=== PATIENT | male | born 1955 | race Caucasian/White ===

== ENCOUNTER → 2020-10-16 | Outpatient (CLI) | payer MEDICARE, OTHER | LOC: KOH-I 15:18 | DX: J44.1 Chronic obstructive pulmonary disease with (acute) exacerbation (principal); R06.02 Shortness of breath | CPT/HCPCS: 71046 ==

== ENCOUNTER 2021-05-31 15:10 | Emergency (ER) | payer MEDICARE, OTHER ==
[2021-05-31] MEDS ORDERED: CEPHALEXIN500 M1 PO (16:08)
[2021-05-31] MEDS ORDERED: BACTROBAN OINT22 GM EXT (16:08)
== END 2021-05-31 16:13 | disposition home or self-care (01) ==
LOC: ER1 15:10
DX: L08.9 Local infection of the skin and subcutaneous tissue, unspecified (principal); E78.5 Hyperlipidemia, unspecified; F17.200 Nicotine dependence, unspecified, uncomplicated; E11.9 Type 2 diabetes mellitus without complications; Z88.0 Allergy status to penicillin
CPT/HCPCS: 99282

== ENCOUNTER → 2021-06-21 | Outpatient (CLI) | payer MEDICARE, OTHER ==
[~2021-06-21] MED LIST: BACTROBAN OINT22 GM EXT; CEPHALEXIN500 M1 PO
== END ==
LOC: KOH-I 11:08
DX: R06.02 Shortness of breath (principal); Z88.0 Allergy status to penicillin
CPT/HCPCS: 71046

== ENCOUNTER 2021-07-03 20:12 | Emergency (ER) | payer MEDICARE, OTHER ==
[2021-07-03 20:49] LABS: HEMOGLOBIN 15.6 gm/dl (14.0-17.5); RED BLOOD COUNT 5.2 M/UL (4.20-5.50); WHITE BLOOD COUNT 13.2 K/UL (4.5-11.0)
[2021-07-03 21:27] LABS: BUN/CREATININE RATIO 18 (0-10)
[2021-07-03] MEDS ORDERED: PREDNISONE10 MG PO (22:10)
[2021-07-03] MEDS ORDERED: PULMICORT FLE180 MCG INH (22:10)
== END 2021-07-03 22:26 | disposition home or self-care (01) ==
LOC: ER1 20:12
PROVIDERS: Physician Assistant
DX: J44.9 Chronic obstructive pulmonary disease, unspecified (principal); E11.9 Type 2 diabetes mellitus without complications; Z88.0 Allergy status to penicillin; Z20.822 Contact with and (suspected) exposure to COVID-19; F17.210 Nicotine dependence, cigarettes, uncomplicated; J44.1 Chronic obstructive pulmonary disease with (acute) exacerbation
CPT/HCPCS: 36600; 71045; 80053; 82550; 82553; 82803; 83605; 83615; 83874; 84484; 85025; 87040; 93005; 94664; 94760; 99285; J2930; U0002